=== PATIENT | female | born 1945 | race Caucasian/White ===

== ENCOUNTER 2025-04-25 09:24 | Outpatient (AMB) | payer MEDICARE, BC, SELFPAY ==
--- OUTSIDE RECORDS SUMMARY | 2025-04-24 09:30 | XMS_ITS | Encounter Summary ---
Author Organization [facility] Address [address] [place] [address] Care Team Providers Care Raw Products Director Name Role Phone Kimi Patel MD Primary Care Provider [phone] Reason for Visit * Reason Comments Hypertension Chronic Kidney Disease Encounter Details Date Type Department Care Team (Late st Contact Info) Description 04/24/2025 9:30 AM EDT Office Visit Adult Medicine [address] [phone] Kimi Patel MD [address] [place] [address] Essential hypertension, benign (Primary Dx); Hypercholesterolemia ; Chronic diastolic heart failure (CMS/HCC V24, CMS/HCC V28); Asthma-COPD overlap syndrome (CMS/HCC V24, CMS/HCC V28); Stage 3b chronic kidney disease (CMS/HCC V24, CMS/HCC V28) Social History Tobacco Use Types Packs/Day Years Used Date Smoking Tobacco: Former Cigarettes 1 17 0 07/05/1958 - 07/05/1975 Smokeless Tobacco: Former Tobacco Cessation:Counseling Given: Not Answered Alcohol Use Standard Drinks/Week Comments Yes 0 (1 standard drink = 0.6 oz pur e alcohol) Housing Instability Answer Date Recorde d Are you worried that in the next 2 months you may not have stable housing? No 02/12/2025 Access to Healthcare Answer Date Record ed Within the last 3 months, ho w many times did you visit the emergency department for your medical care? 1 02/12/2025 Transportation Answer Date Recorded Has the lack of transportati on kept you from meetings, work, or from getting things needed for daily living? No Has the lack of transportati on kept you from medical appointments or from getting medications? No 02/12/2025 Social Isolation Answer Date Recorded How often do you feel lonely or isolated from th ose around you? Never 02/12/2025 Food Risk Answer Date Recorded Within the past 12 months we worried whether our food would run out before we got money to buy more. Never true 02/12/2025 Within the past 12 months th e food we bought just didn't last and we didn't have money to get more. Never true 02/12/2025 Living Situation Answer Date Recorded What is your living situation? Unrecognized valu e 02/12/2025 Interpersonal Safety Answer Date Record ed Physical Abuse Unrecognized value 01/01/2025 Verbal Abuse Unrecognized value 01/01/2025 Comments No Sex and Gender Information Value Date Recorded Sex Assigned at Not on file Legal Sex Female 7:41 AM EST Gender Identity Not on file Sexual Orientation Not on file documented as of this encounter Last Filed Vital Signs Vital Sign Reading Time Taken Comments Blood Pressure 122/56 04/24/2025 9:15 AM EDT Pulse 58 04/24/2025 9:15 AM EDT Temperature 36.1 C (97 F) 04/24/2025 9:15 AM EDT Respiratory Rate 16 04/24/2025 9:15 AM EDT Oxygen Saturation 96% 04/24/2025 9:15 AM EDT Inhaled Oxygen Concentration - - Weight 74.8 kg (164 lb 14.4 oz) 04/24/2025 9:15 AM EDT Height 162.6 cm (5' 4 ) 04/24/2025 9:15 AM EDT Body Mass Index 28.31 04/24/2025 9:15 AM EDT documented in this encounter Ordered Prescriptions Prescription Sig Dispense Quantity Refills Last Filled Start Date End Date allopurinoL (ZYLOPRIM) 100 mg tablet Take 1 tablet (100 mg total) by mouth 1 (one) time each day. 90 tablet 1 04/24/2025 atenoloL (TENORMIN) 25 mg tablet Take 1 tablet (25 mg total) by mouth at bedtime. 90 tablet 1 04/24/2025 cetirizine (ZyrTEC) 10 mg tabletIndications: Asthma-COPD overlap syndrome (CMS/HCC V24, CMS/HCC V28) Take 1 tablet (10 mg total) by mouth 1 (one) time each day. 90 tablet 1 04/24/2025 levothyroxine (SYNTHROID, LEVOTHROID) 75 mcg tablet Take 1 tablet (75 mcg total) by mouth 1 (one) time each day. 90 tablet 1 04/24/2025 omeprazole (PriLOSEC) [address] capsule Take 1 capsule (20 mg total) by mouth 1 (one) time each day before breakfast. 90 capsule 1 04/24/2025 simvastatin (ZOCOR) 40 mg tablet Take 1 tablet (40 mg total) by mouth at bedtime. 90 tablet 1 04/24/2025 documented in this encounter Progress Notes * Kimi Patel MD - 04/24/2025 9:30 AM EDT Chief Complaint: Chief Complaint Patient presents with Hypertension Chronic Kidney Disease IDENTIFIER: Ilda Galvan is a 79 y.o. old female HPI She comes for evaluation with chronic kidney disease, congestive heart failure, asthma-COPD, hypothyroidism, elevated cholesterol, hypertension. She is following ongoing with cardiology and with pulmonary, breathing has been stable using the albuterol and Breo Ellipta inhalers, she continues with thyroid replacement as well as simvastatin and blood pressure is controlled with atenolol, amlodipine, allopurinol for the gout and omeprazole for reflux. She is continuing with daily potassium, Lasix as well as a low-sodium diet. She has been feeling generally at her baseline, not having chest pain or shortness of breath. She has previously had breast cancer and is up-to-date with monitoring. Renal studies are stable with creatinine 1.96. She has not yet had the updated COVID-vaccine. ROS: General: No malaise, significant weight loss or fever Respiratory: No cough, wheezing or shortness of breath except as noted Cardiovascular: No chest pain, palpitations, no orthopnea Past Medical History: Patient Active Problem List Diagnosis Date Noted Cognitive impairment 12/27/2024 History of breast cancer 09/11/2024 Pulmonary nodules 11/13/2022 RLS (restless legs syndrome) 11/13/2022 COVID-19 09/16/2022 Mild obstructive sleep apnea 06/15/2021 Ascending aorta dilation [place] [place] 05/13/2020 Lichen sclerosus 03/08/2020 Chronic diastolic heart failure ([facility] [place], [facility] V28) 11/07/2018 Overweight (BMI 25.0-29.9) 10/12/2018 Primary osteoarthritis of both hands 08/06/2017 Asthma-COPD overlap syndrome ([facility] [place], [facility] V28) 05/02/2015 Plantar fasciitis of right foot 10/11/2014 Post herpetic neuralgia 02/27/2011 Stage 3b chronic kidney disease ([facility] [place]24, [facility] V28) 03/06/2010 Hypercholesterolemia 04/04/2008 Environmental and seasonal allergies 01/15/2006 Esophageal reflux 01/15/2006 Essential hypertension, benign 01/15/2006 Hypothyroid 01/15/2006 Gout, unspecified 01/07/2006 Surgical History: Surgical History[1] Family History: Family History[2] Social History: Social History Tobacco Use Smoking status: Former Current packs/day: 0.00 Average packs/day: 1 pack/day for 17.0 years (17.0 ttl pk-yrs) Types: Cigarettes Start date: 07/05/1958 Quit date: 07/05/1975 Years since quittin.8 Smokeless tobacco: Former Substance Use Topics Alcohol use: Yes Allergies: Morphine Medications: Medications Taking[3] Medication Discontinued/Reordered: Medications Discontinued During This Encounter Medication Reason levothyroxine (SYNTHROID, LEVOTHROID) 75 mcg tablet Reorder simvastatin (ZOCOR) 40 mg tablet Reorder omeprazole (PriLOSEC) [address] capsule Reorder atenoloL (TENORMIN) 25 mg tablet Reorder cetirizine (ZyrTEC) 10 mg tablet Reorder allopurinoL (ZYLOPRIM) 100 mg tablet Reorder Vitals: Blood pressure 122/56, pulse 58, temperature 36.1 ??C (97 ??F), temperature source Temporal, resp. rate 16, height 1.626 m (64 ), weight 74.8 kg (164 lb 14.4 oz), SpO2 96%. Body mass index is 28.31 kg/m??.Plan is deferred because the patient is aged 65 or older and a weight gain/reduction plan would complicate other health conditions Physical Exam: General: patient is in no acute distress. Neck supple without adenopathy, no thyromegaly. Lungs clear with auscultation. Heart: regular S1S2 without murmur, rub or gallop. Extremities without cyanosis, clubbing or edema. Labs: Lab Results Component Value Date GLUCOSE 100 02/02/2025 CALCIUM 9.9 02/02/2025 NA 140 02/02/2025 K 4.0 02/02/2025 CO2 33 (H) 02/02/2025 CL 104 02/02/2025 BUN 32 (H) 02/02/2025 CREATININE 1.96 (H) 02/02/2025 Lab Results Component Value Date CHOL 184 07/03/2024 TRIG 140 07/03/2024 HDL 64 07/03/2024 LDLCALC 92 07/03/2024 VLDL 28 07/03/2024 NONHDLC 120 07/03/2024 CHOLHDL 2.9 07/03/2024 Impression: 1. Essential hypertension, benign 2. Hypercholesterolemia 3. Chronic diastolic heart failure (CMS/HCC V24, CMS/HCC V28) 4. Asthma-COPD overlap syndrome (CMS/HCC V24, CMS/HCC V28) 5. Stage 3b chronic kidney disease (CMS/HCC V24, CMS/HCC V28) Assessment and Plan: She will continue with thyroid replacement, not having any symptoms suggestive of cardiac decompensation, asthma-COPD have been stable on her inhalers. Her blood pressure remains controlled on the atenolol, amlodipine and she will continue with simvastatin for her cholesterol. Renal studies have been stable, she is updated with flu vaccine and will pursue the COVID-vaccine through the pharmacy. She remains with thyroid replacement, low-cholesterol and low-sodium diet. She will return in 6 months, sooner if needed Myself and my colleagues have maintained a long-term, longitudinal relationship with this patient, overseeing care of chronic conditions including hypertension, elevated cholesterol, chronic kidney disease. This care relationship has significantly influenced my decision making and treatment plans during today's encounter. [1] Past Surgical History: Procedure Laterality Date COLONOSCOPY 09/2005 COLONOSCOPY 09/17 Colon polyps x 2, diverticulosis MASTECTOMY 1988 right [2] Family History Problem Relation Name Age of Onset Breast cancer Maternal Grandmother 60.00 Bilateral, second breast removed at 65 yrs for breast cancer. Breast cancer Aunt maternal 70.00 maternal Breast cancer Sister 75 Other (Other: ETOH abuse) Mother Other (Other: CAD) Father COPD Colon cancer Neg Hx Ovarian cancer Neg Hx Uterine cancer Neg Hx Pancreatic cancer Neg Hx Prostate cancer Neg Hx [3] Outpatient Medications Marked as Taking for the 04/24/25 encounter (Office Visit) with Kimi Patel MD Medication Sig Dispense Refill albuterol HFA (PROAIR HFA ; PROVENTIL HFA ; VENTOLIN HFA) 90 mcg/actuation inhaler Inhale 2 Puffs into the lungs every 4 hours as needed for Cough or Wheezing. allopurinoL (ZYLOPRIM) 100 mg tablet Take 1 tablet (100 mg total) by mouth 1 (one) time each day. 90 tablet 1 amLODIPine (NORVASC) 10 mg tablet TAKE 1 TABLET BY MOUTH EVERYDAY AT BEDTIME 90 tablet 1 atenoloL (TENORMIN) 25 mg tablet Take 1 tablet (25 mg total) by mouth at bedtime. 90 tablet 1 azelastine (ASTELIN) 137 mcg (0.1 %) nasal spray SPRAY 1 SPRAY IN EACH NOSTRIL DIRECTED TWICE A DAY 90 mL 3 betamethasone, augmented, (DIPROLENE) 0.05 % ointment APPLY TOPICALLY TO AFFECTED AREA ON WEDNESDAY, WEDNESDAY, WEDNESDAY Breo Ellipta 200-25 mcg/dose inhaler INHALE 1 PUFF BY MOUTH EVERY DAY 60 each 4 cetirizine (ZyrTEC) 10 mg tablet Take 1 tablet (10 mg total) by mouth 1 (one) time each day. 90 tablet 1 cholecalciferol (VITAMIN D-3) 125 mcg (5,000 unit) capsule Take by mouth. cycloSPORINE (Restasis MultiDose) 0.05 % drops PLACE 1 DROP IN BOTH EYES TWICE DAILY fluticasone propionate (FLONASE) 50 mcg/actuation nasal spray SPRAY 2 SPRAYS INTO EACH NOSTRIL EVERY DAY 48 mL 1 furosemide (LASIX) 40 mg tablet Take 1 tablet (40 mg total) by mouth 1 (one) time each day. 90 each1 levothyroxine (SYNTHROID, LEVOTHROID) 75 mcg tablet Take 1 tablet (75 mcg total) by mouth 1 (one) time each day. 90 tablet 1 omeprazole (PriLOSEC) [address] capsule Take 1 capsule (20 mg total) by mouth 1 (one) time each day before breakfast. 90 capsule 1 potassium chloride (KLOR-CON M20) 20 mEq CR tablet Take 1 tablet (20 mEq total) by mouth 1 (one) time each day. Tablet may be swallowed whole (do not crush/chew/suck on) OR broken in half and each half swallowed separately OR dissolved (whole tablet) in ~4 ounces of water (allow ~2 minutes to dissolve, stir well and administer immediately). 90 each 1 simvastatin (ZOCOR) 40 mg tablet Take 1 tablet (40 mg total) by mouth at bedtime. 90 tablet 1 [DISCONTINUED] allopurinoL (ZYLOPRIM) 100 mg tablet TAKE 1 TABLET BY MOUTH EVERY DAY 90 tablet 1 [DISCONTINUED] atenoloL (TENORMIN) 25 mg tablet Take 1 tablet (25 mg total) by mouth at bedtime. 90tablet 1 [DISCONTINUED] cetirizine (ZyrTEC) 10 mg tablet TAKE 1 TABLET BY MOUTH EVERY DAY 90 tablet 1 [DISCONTINUED] levothyroxine (SYNTHROID, LEVOTHROID) 75 mcg tablet TAKE 1 TABLET BY MOUTH EVERY DAY90 tablet 1 [DISCONTINUED] omeprazole (PriLOSEC) [address] capsule Take 1 capsule (20 mg total) by mouth 1 (one)time each day before breakfast. 90 capsule 1 [DISCONTINUED] simvastatin (ZOCOR) 40 mg tablet Take 1 tablet (40 mg total) by mouth at bedtime. 90tablet 1 documented in this encounter Plan of Treatment Upcoming Encounters Date Type Department Care Team (Late st Contact Info) Description 05/21/2025 1:10 PM EST Office Visit [facility] [address] [facility] [address] [place] [phone] Shyanne Montano, HENNA [address] [place] [address] [place] [phone] 06/27/2025 10:30 AM EST Ancillary Procedure Pulmonology - [address] [phone] 06/27/2025 11:25 AM EST Office Visit Pulmonology - [address] [phone] Brea Gregorio, HENNA [address] [place] [phone] 10/23/2025 9:30 AM EDT Office Visit Adult Medicine [facility] [address] [place] [address] Kisha Gardner PA [address] [place] [address] documented as of this encounter Goals Goal Patient Goal Type Associated Problems Recent Progress Patient-Stated? Author Learn early signs and symptoms General No Arlin Alcantara, RN Note: Educate pt on s/s to watch for and importance of daily weights 02/12/25 discussed heart healthy diet. She limits salt and we reviewed sources of hidden sodium in foods 03/14/25 pt went out to eat with friends and still monitored sodium. We reviewed s/s and ways to reduce edema documented as of this encounter Visit Diagnoses Diagnosis Essential hypertension, benign- Primary Hypercholesterolemia Pure hypercholesterolemia Chronic diastolic heart failure (CMS/HCC V24, CMS/HCC V28) Chronic diastolic heart failure Asthma-COPD overlap syndrome (CMS/HCC V24, CMS/HCC V28) Stage 3b chronic kidney disease (CMS/HCC V24, CMS/HCC V28) documented in this encounter Discontinued Medications Medication Sig Discontinue Reason Start Date End Da te levothyroxine (SYNTHROID, LEVOTHROID) 75 mcg tablet TAKE 1 TABLET BY MOUTH EVERY DAY Reorder 10/26/2024 04/24/2025 simvastatin (ZOCOR) 40 mg tablet Take 1 tablet (40 mg total) by mouth at bedtime. Reorder 11/01/2024 04/24/2025 omeprazole (PriLOSEC) [address] capsule Take 1 capsule (20 mg total) by mouth 1 (one) time each day before breakfast. Reorder 11/01/2024 04/24/2025 atenoloL (TENORMIN) 25 mg tablet Take 1 tablet (25 mg total) by mouth at bedtime. Reorder 11/01/2024 04/24/2025 cetirizine (ZyrTEC) 10 mg tabletIndications:Postna [place] drip TAKE 1 TABLET BY MOUTH EVERY DAY Reorder 11/15/2024 04/24/2025 allopurinoL (ZYLOPRIM) 100 mg tablet TAKE 1 TABLET BY MOUTH EVERY DAY Reorder 11/15/2024 04/24/2025 documented as of this encounter Orders Immunization/Injection Count Last Ordered Date First Ordered Date INFLUENZA TRIVALENT, 0.5ML ( FLUAD) 65YO AND OLDER 1 04/24/2025 documented in this encounter Additional Health Concerns Assessment Noted Time PHQ-9 Depression Total Score: 0 04/23/20 25 3:04 PM EDT documented as of this encounter Care Teams Raw Products Director Relationship Specialty Start Date End Date Kimi Patel MD [address] [place] [address] PCP - General Internal Medicine 07/04/15 documented as of this encounter
--- NOTE | 2025-04-25 09:25 | AM.OFFWIN_ITS ---
Intake Vital Signs 04/25/25 09:28 Height 5 ft 4 in Weight 163 lb BMI 28.0 BP 140/70 H Blood Pressure Location Rt brachial Position Sitting Pulse 63 Pulse Source Pulse Oximeter Temp 97.8 F Temp Source Oral Pulse Oximetry (%) 95 Oxygen Delivery Method Room Air Intake Visit Reasons: EP cut on right arm Intake Note: The patient fell accidentally yesterday. There is some sign of skin cut and redness on her right elbow and under the elbow. Allergies No Known Allergies Allergy (Verified 04/25/25 09:39) Do you need a note to return to daycare/school/sports/work: No HPI HPI Comments History of Present Illness Details Patient was informed and verbally consented to the use of an ambient scribe for clinic note documentation during the visit. History of Present Illness The patient is an 79-year-old female presenting with recent fall. Fall - The patient reports falling yesterday upon entering her house as a result of losing her balance. - During the fall, she hit her head brie fly but reports her shoulder took most of the impact and sustained no persistent symptoms such as headaches, dizziness, or loss of consciousness. - The patient denies being on blood thin ners, having recent vision changes, or experiencing weakness in her limbs. - She sustained a skin laceration along the right forearm. Reports cleaning out the wound after the injury - Denies any other injuries/trauma - Has noticed some clear drainage from t he wound but not longer any active bleeding - The patient removed a piece of hanging skin post-injury. - She reports application of a Band-Aid and cessation of active bleeding. Review of Systems Constitutional: Negative for fevers, chills, HENT: Negative for congestion, rhinorrhea, sore throat, ear pain, ear discharge, hearing loss Eyes: Negative for visual disturbance Skin: Reports right forearm wound Neurological: Negative for dizziness, headaches, light headedness, vision changes, numbness, limb weakness Physical Exam General Appearance: Normal appearance, well developed. No acute distress Head: Normocephalic, atraumatic Pulmonary: No respiratory distress. Speaking in full sentences Musculoskeletal: Moving all extremities spontaneously and against gravity Skin: Roughly 2 cm skin avulsion/abrasion present along the right forearm, no longer actively bleeding. Wound appears clean without foreign body or debris. Distal neurovascular status intact including pulse, capillary refill, color, temperature, sensation, and ROM. Mental Status: Alert and Oriented x 3 Psychiatric: Normal mood. Normal affect. Physical Exam Vital Signs: Last Vital Signs Temp 97.8 F 04/25/25 09:28 Pulse 63 04/25/25 09:28 BP 140/70 H 04/25/25 09:28 Pulse Ox 95 04/25/25 09:28 Oxygen Delivery Method Room Air 04/25/25 09:28 BMI result Body Mass Index 28.0 Assessment & Plan Assessment & Plan (1) Avulsion of skin of right forearm: Code(s): S51.801A - Unspecified open wound of right forearm, initial encounter Qualifiers: Encounter type: initial encounter Qualified Code(s): S51.801A - Unspecified open wound of right forearm, initial encounter Plan: - Wound is a skin avulsion and no longer actively bleeding - I recommend applying topical antibiotic ointment to prevent infection and using nonstick gauze to avoid reopening the wound during dressing changes. - Wound cleaned and dressed in office. - Dressing changes are advised every 24 hours, washing the wound with soap and water, then reapplying ointment and gauze - Last tdap UTD - 08/23/24 - F/U if any signs of infection such as redness, swelling, purulent drainage occur (2) Fall: Code(s): W19.XXXA - Unspecified fall, initial encounter Qualifiers: Encounter type: initial encounter Qualified Code(s): W19.XXXA - Unspecified fall, initial encounter Plan: Advised to monitor for any headaches, dizziness, changes in vision, or focal weakness. Recommended to seek prompt medical attention if these symptoms occur Coding Level of Care Code New Pt Level 3 (30914) Diagnoses Avulsion of skin of right forearm, initial encounter S51.801A Encounter type: initial encounter Fall, initial encounter W19.XXXA Encounter type: initial encounter
[2025-04-25 09:28] VITALS: BP 140/70; PULSE 63; TEMP 36.6; O2SAT 95; BMI 28.0
--- OUTSIDE RECORDS SUMMARY | 2025-04-25 10:40 | XMS_ITS ---
Author Organization [facility] [address] [place] [address] [place] [phone] Phone Care Team Providers Care School Photographs Detailer Name Role Phone Kimi Patel MD Primary Care Provider Chronic Care Management Status:Ongoing (Active) Start date:01/04/2025 Enrollment date:01/10/2025 Enrollment reason:Referred by Care Team Related social drivers of health:Housing Instability, Food Access & Nutrition, Access to Healthcare, TH Health Literacy, Financial Risk, Transportation, Social Isolation, Food Risk Case Team Name Relationship Phone Arlin Alcantara RN(Responsible Staff) Care Ghassan [email or web address] [facility] Services Coordination
--- OUTSIDE RECORDS SUMMARY | 2025-04-25 10:40 | XMS_ITS | Clinical Summary ---
Author Organization [facility], Address [address] [place] [address] [place] [address] Phone Care Team Providers Care Wire Drawing Die Maker Name Role Phone Kimi Patel MD Primary Care Provider [phone] Allergies Active Allergy Reactions Criticality Noted Date Comments Morphine Nausea And Vomiting 08/06/2017 Medications simvastatin (ZOCOR) 20 MG tablet TAKE 1 TABLET BY MOUTH EVERYDAY AT BEDTIME 0 Active omeprazole (PriLOSEC) [address] capsule Take 20 mg by mouth 0 Active levothyroxine (SYNTHROID, LEVOTHROID) 100 MCG tablet TAKE 1 TABLET BY MOUTH EVERY DAY 0 Active gabapentin (NEURONTIN) 300 MG capsule TAKE 1 CAPSULE BY MOUTH TWICE A DAY 0 Active furosemide (LASIX) 40 MG tablet Take 40 mg by mouth 0 Active fluticasone (FLONASE) 50 MCG/ACT nasal spray TAKE 2 SPRAYS EACH NOSTRIL DAILY 0 Active cycloSPORINE (RESTASIS) 0.05 % ophthalmic emulsion Administer 1 drop into affected eye(s) Active budesonide-form oterol (Symbicort) 160-4.5 MCG/ACT inhaler TAKE 2 PUFFS BY MOUTH TWICE A DAY 0 Active atenolol (TENORMIN) 25 MG tablet Take 25 mg by mouth 0 Active triamcinolone (Nasacort Allergy 24HR) 55 MCG/ACT nasal inhaler Administer 55 mcg into affected nostril(s) 1 Active calcium carbonate-vitam in D 600-200 MG-UNIT per tablet Take by mouth Active albuterol HFA (ProAir HFA) 108 (90 Base) MCG/ACT inhaler Inhale 2 puffs 8 Active albuterol (2.5 MG/3ML) 0.083% nebulizer solution Inhale 2.5 mg 0 Active allopurinol (ZYLOPRIM) 300 MG tablet Take 1 tablet (300 mg total) by mouth 1 (one) time each day 90 tablet 3 1 Active cetirizine (ZyrTEC) 10 MG tablet Take 1 tablet by mouth 1 (one) time each day 2 Active Azelastine HCl 0.15 % solution 2 Active omeprazole (PriLOSEC) [address] capsule Take 1 tablet by mouth 1 (one) time each day 2 Active levothyroxine (SYNTHROID, LEVOTHROID) 75 MCG tablet Take 75 mcg by mouth 1 (one) time each day 3 Active nystatin (MYCOSTATIN) 153973 UNIT/ML suspension PLEASE SEE ATTACHED FOR DETAILED DIRECTIONS 3 Active simvastatin (ZOCOR) 40 MG tablet Take 40 mg by mouth 1 (one) time each day in the evening 3 Active Diclofenac Sodium 1 % cream Apply 1 Dose topically in the morning and 1 Dose in the evening. 30 g 3 4 Active olmesartan (BENICAR) 5 MG tablet TAKE 1 TABLET BY MOUTH EVERY DAY 90 tablet 3 5 Active Active Problems Problem Noted Date Diagnosed Date Ascending aorta dilatation 05/13/2020 Overview (12/10/2020): 05/2020 transthoracic echo 3.6 cm Asthma 05/02/2015 Stage 3a chronic kidney disease 03/06/2010 Hypercholesterolemia 04/04/2008 Hypertension 01/15/2006 Hypothyroidism 01/15/2006 Gout 01/07/2006 Encounters Date Type Department Care Team Description 03/28/2025 10:00 AM EDT Office Visit [facility], [address] [place] [address] Chris Morton MD Stage 3a chronic kidney disease (HCC) (Primary Dx) from Last 3 Months Immunizations Immunization Administration Dates Next Due H1N1 Inj Preservative Free 07/10/2009 Influenza Split High Dose Pr eservative Free IM 02/21/2020,04/13/2019,04/20/2018 Influenza TIV (IM) 06/18/2016, 5,06/14/2014,04/17,04/26/2012,03/24/2011,07/10/2009 ,04/04/2008,07/07/2007,05/20/2006 Influenza, MDCK, Quadrivalen t, with preservative 06/16/2017 Pfizer SARS-COV-2 08/30/2020,08/09/2020 Pneumococcal Conjugate 13-Valent 10/11/2014 Pneumococcal Polysaccharide 09/05/2010 Shingrix 07/27/2019 Td 10/15/2017 Tdap 07/27/2007 Social History Tobacco Use Types Packs/Day Years Used Date Smoking Tobacco: Never Smokeless Tobacco: Never Comments Unknown Sex and Gender Information Value Date Recorded Sex Assigned at Female 01/15/2022 10:51 AM EDT Legal Sex Female 2:24 PM EST Gender Identity Female 01/15/2022 10:51 AM EDT Sexual Orientation Straight 01/15/2022 10 :51 AM EDT Last Filed Vital Signs Vital Sign Reading Time Taken Comments Blood Pressure 145/82 01/21/2022 9:18 AM EDT Pulse - - Temperature - - Respiratory Rate - - Oxygen Saturation - - Inhaled Oxygen Concentration - - Weight - - Height - - Body Mass Index - - Plan of Treatment Upcoming Encounters Date Type Department Care Team (Late st Contact Info) Description 06/26/2025 11:20 AM EST Office Visit [facility], [address] [place] [address] Chris Morton MD [address] [place] [address] [place] [phone] Health Maintenance Due Date Last Done Comments Pneumococcal Vaccine: 50+ Years Completed 10/11/2014, 09/05/2010 Pneumococcal Vaccine: Peds (0 to 5 Years) and At-Risk Patients (6 to 49 Years) Discontinued 10/11/2014, 09/05/2010 Influenza Vaccine Completed 02/16/2025, , 04/20/2023, Additional history exists Hepatitis B Vaccine Aged Out No longe r eligible based on patient's age to complete this topic Insurance Medicare [facility] Care Teams Wire Drawing Die Maker Relationship Specialty Start Date End Date Kimi Patel MD PCP - General Internal Medicine 03/25/22
--- OUTSIDE RECORDS SUMMARY | 2025-04-25 10:40 | XMS_ITS | Encounter Summary ---
Author Organization [facility] Address [address] [place] [address] Phone Care Team Providers Care Dog Catcher Name Role Phone Kimi Patel MD Primary Care Provider [phone] Reason for Visit * Reason Comments Med Refill Encounter Details Date Type Department Care Team (Late st Contact Info) Description 10/04/2024 Refill [facility] [address] [place] [phone] Chris Morton MD [address] [place] [address] Social History Tobacco Use Types Packs/Day Years Used Date Smoking Tobacco: Never Smokeless Tobacco: Never Comments Unknown Sex and Gender Information Value Date Recorded Sex Assigned at Female 01/15/2022 10:51 AM EDT Legal Sex Female 2:24 PM EST Gender Identity Female 01/15/2022 10:51 AM EDT Sexual Orientation Straight 01/15/2022 10 :51 AM EDT documented as of this encounter Plan of Treatment Upcoming Encounters Date Type Department Care Team (Late st Contact Info) Description 06/26/2025 11:20 AM EST Office [facility] [address] [place] [phone] Chris Morton MD [address] [place] [phone] documented as of this encounter Visit Diagnoses Not on filedocumented in this encounter Care Teams Dog Catcher Relationship Specialty Start Date End Date Kimi Patel MD PCP - General Internal Medicine 03/25/22 documented as of this encounter
--- OUTSIDE RECORDS SUMMARY | 2025-04-25 10:41 | XMS_ITS | Clinical Summary ---
Author Organization [facility] [address] [facility] Address [address] [place] [phone] Phone Care Team Providers Care Financial Reserve Clerk Name Role Phone Kimi Patel MD Primary Care Provider [phone] Allergies Active Allergy Reactions Criticality Noted Date Comments Morphine Nausea And Vomiting High 08/06/2017 Medications albuterol HFA (PROAIR HFA ; PROVENTIL HFA ; VENTOLIN HFA) 90 mcg/actuation inhaler Inhale 2 Puffs into the lungs every 4 hours as needed for Cough or Wheezing. 4 Active betamethasone, augmented, (DIPROLENE) 0.05 % ointment APPLY TOPICALLY TO AFFECTED AREA ON WEDNESDAY, WEDNESDAY, Wednesday 4 Active cholecalciferol (VITAMIN D-3) 125 mcg (5,000 unit) capsule Take by mouth. A ctive cycloSPORINE (Restasis MultiDose) 0.05 % drops PLACE 1 DROP IN BOTH EYES TWICE DAILY 4 Active azelastine (ASTELIN) 137 mcg (0.1 %) nasal sprayIndication s:Postnasal drip,Other allergic rhinitis SPRAY 1 SPRAY IN EACH NOSTRIL DIRECTED TWICE A DAY 90 mL 3 4 Active fluticasone propionate (FLONASE) 50 mcg/actuation nasal sprayIndication s:Postnasal drip,Other allergic rhinitis SPRAY 2 SPRAYS INTO EACH NOSTRIL EVERY DAY 48 mL 1 5 Active furosemide (LASIX) 40 mg tablet Take 1 tablet (40 mg total) by mouth 1 (one) time each day. 90 each 1 5 Active potassium chloride (KLOR-CON M20) 20 mEq CR tablet Take 1 tablet (20 mEq total) by mouth 1 (one) time each day. Tablet may be swallowed whole (do not crush/chew/suc k on) OR broken in half and each half swallowed separately OR dissolved (whole tablet) in ~4 ounces of water (allow ~2 minutes to dissolve, stir well and administer immediately). 90 each 1 5 Active Breo Ellipta 200-25 mcg/dose inhalerIndicati ons:Moderate persistent asthma, uncomplicated,C hronic obstructive pulmonary disease, unspecified (CMS/[facility] V24, CMS/[facility] V28) INHALE 1 PUFF BY MOUTH EVERY DAY 60 each 4 5 Active amLODIPine (NORVASC) 10 mg tablet TAKE 1 TABLET BY MOUTH EVERYDAY AT BEDTIME 90 tablet 1 5 Active simvastatin (ZOCOR) 40 mg tablet Take 1 tablet (40 mg total) by mouth at bedtime. 90 tablet 1 5 Active omeprazole (PriLOSEC) [address] capsule Take 1 capsule (20 mg total) by mouth 1 (one) time each day before breakfast. 90 capsule 1 5 Active levothyroxine (SYNTHROID, LEVOTHROID) 75 mcg tablet Take 1 tablet (75 mcg total) by mouth 1 (one) time each day. 90 tablet 1 5 Active cetirizine (ZyrTEC) 10 mg tabletIndicatio ns:Asthma-COPD overlap syndrome (CMS/[facility] V24, CMS/[facility] V28) Take 1 tablet (10 mg total) by mouth 1 (one) time each day. 90 tablet 1 5 Active atenoloL (TENORMIN) 25 mg tablet Take 1 tablet (25 mg total) by mouth at bedtime. 90 tablet 1 5 Active allopurinoL (ZYLOPRIM) 100 mg tablet Take 1 tablet (100 mg total) by mouth 1 (one) time each day. 90 tablet 1 5 Active levothyroxine (SYNTHROID, LEVOTHROID) 75 mcg tablet TAKE 1 TABLET BY MOUTH EVERY DAY 90 tablet 1 5 04/24/20 25 Discontin ued(Reord er) simvastatin (ZOCOR) 40 mg tablet Take 1 tablet (40 mg total) by mouth at bedtime. 90 tablet 1 5 04/24/20 25 Discontin ued(Reord er) omeprazole (PriLOSEC) [address] capsule Take 1 capsule (20 mg total) by mouth 1 (one) time each day before breakfast. 90 capsule 1 5 04/24/20 25 Discontin ued(Reord er) atenoloL (TENORMIN) 25 mg tablet Take 1 tablet (25 mg total) by mouth at bedtime. 90 tablet 1 5 04/24/20 25 Discontin ued(Reord er) cetirizine (ZyrTEC) 10 mg tabletIndicatio ns:Postnasal drip TAKE 1 TABLET BY MOUTH EVERY DAY 90 tablet 1 5 04/24/20 25 Discontin ued(Reord er) allopurinoL (ZYLOPRIM) 100 mg tablet TAKE 1 TABLET BY MOUTH EVERY DAY 90 tablet 1 5 04/24/20 25 Discontin ued(Reord er) Active Problems Problem Noted Date Diagnosed Date Cognitive impairment 12/27/2024 History of breast cancer 09/11/2024 Overview (09/11/2024): right Pulmonary nodules 11/13/2022 RLS (restless legs syndrome) 11/13/2022 COVID-19 09/16/2022 Mild obstructive sleep apnea 06/15/2021 Overview (05/08/2024): 04/28/2021 HSAT Patient diagnosed with mild sleep apnea with AHI of 9. Her oxygen avrage was 91% and tari was 74%. Her oxygen was <88% for 12minutes. Ascending aorta dilation (CMS/HCC V24) 0 Overview (05/08/2024): 05/2020 transthoracic echo 3.6 cm Lichen sclerosus 03/08/2020 Overview (09/11/2024): Assessment & Plan (06/10/2024 8:30 PM EST): Reviewed findings with patient. I reviewed the importance of regular maintenance topical steroid use to prevent symptoms, further scarring, and squamous cell cancer of the vulva. I also explained the importance of regular follow up to ensure she has no evidence of precancerous or cancerous changes and that she is not having side effects from her medication. I reviewed areas of application and amount of medication to use. Continue three times per week Diprolene Chronic diastolic heart failure ([facility] V24, CM S/[facility] V28) 11/07/2018 Overview (09/11/2024): Assessment & Plan (02/02/2025 1:10 PM EDT): Aside from some mild lower extremity edema she appears euvolemic on physical exam. She denies shortness of breath, orthopnea and paroxysmal nocturnal dyspnea. She is being more conscientious of sodium in her diet. She has continued on furosemide 40 mg daily despite being advised to discontinue this due to declining kidney function. I will have her update BMP and mag level today before making changes to her current medical therapy. She will go to the lab from here. She is unsure if she is still taking potassium. She will check when she gets home and contact the office for clarification. If kidney function remains significantly reduced from her baseline, I will have to consider discontinuing furosemide. Her next appointment with nephrology is not until the end of March and I have asked her to give their office a call to try to move up the appointment. Assessment & Plan (10/02/2024 4:52 PM EDT): She appears slightly volume overloaded with lower extremity edema. She otherwise has no shortness of breath with her daily activity. We had a discussion about reducing salt intake. Will increase furosemide to 20 mg 4 times a week. Orders: Ambulatory referral to Cardiology ECG 12 lead Overweight (BMI 25.0-29.9) 10/12/2018 Primary osteoarthritis of both hands 08/06/2017 Asthma-COPD overlap syndrome (CMS/HCC V24, CMS/H CC V28) 05/02/2015 Plantar fasciitis of right foot 10/11/2014 Post herpetic neuralgia 02/27/2011 Stage 3b chronic kidney disease (CMS/HCC V24, CM S/HCC V28) 03/06/2010 Hypercholesterolemia 04/04/2008 Overview (09/11/2024): Environmental and seasonal allergies 01/15/2006 Esophageal reflux 01/15/2006 Essential hypertension, benign 01/15/2006 Overview (09/11/2024): Assessment & Plan (02/02/2025 1:05 PM EDT): Blood pressure is well-controlled in the office today at 116/60. Continue current medical therapy with amlodipine and atenolol as prescribed. Continue to hold olmesartan in the setting of reduced kidney function. Assessment & Plan (10/02/2024 4:52 PM EDT): Overall hypertension control is reasonable. Hopefully, blood pressure will improve with diet change. Hypothyroid 01/15/2006 Gout, unspecified 01/07/2006 Resolved Problems Problem Noted Date Diagnosed Date Resolved Date Anasarca 01/01/2025 01/11/2025 Encounters Date Type Department Care Team Description 04/24/2025 9:30 AM EDT Office Visit Adult Medicine [address] [phone] Kimi Patel MD Essential hypertension, benign (Primary Dx); Hypercholesterolemia; Chronic diastolic heart failure (CMS/HCC V24, CMS/HCC V28); Asthma-COPD overlap syndrome (CMS/HCC V24, CMS/HCC V28); Stage 3b chronic kidney disease (CMS/HCC V24, CMS/HCC V28) 03/26/2025 9:20 AM EDT Office Visit Pulmonology - [address] [place] [phone] Brea Gregroio NP Asthma-COPD overlap syndrome (CMS/HCC V24, CMS/HCC V28) (Primary Dx); Pulmonary nodules; Mild obstructive sleep apnea; Overweight (BMI 25.0-29.9) 02/20/2025 Telephone Adult Medicine [address] [phone] Yissel Hayes RN 02/15/2025 Telephone Adult Medicine [address] [phone] Kimi Patel MD 02/02/2025 1:20 PM EDT Lab Draw Station - [address] [facility] [place] [phone] Chronic diastolic heart failure ([facility] V24, CMS/HCC V28) 02/02/2025 12:40 PM EDT Office Visit [facility] - [address] [place] [phone] Shyanne Montano, HENNA Chronic diastolic heart failure (CMS/HCC V24, CMS/HCC V28) (Primary Dx); Essential hypertension, benign from Last 3 Months Immunizations Immunization Administration Dates Next Due H1N1 Inj Preservative Free 07/10/2009 Influenza Quadravalent, 0.5m l (Fluzone High-dose) 65yo and older 08/23/2024,04/20/2023,05/09/2022 Influenza Quadravalent, MDCK , 0.5ml, with preservative (Flucelvax) 6mo and older 06/16/2017 Influenza trivalent, 0.5mL ( Fluad) 65yo and older 04/24/2025,05/09/2022,06/12/2021,02/20,04/13/2019,04/20/2018 Influenza trivalent, 0.5mL ( Fluzone High-dose) 65yo and older 02/16/2025,08/23/2024,06/12/2021,02/20,04/13/2019,04/20/2018 Influenza trivalent, 0.5mL, preservative free (Fluarix; FluLaval; Fluzone) ages 6mo and older (Afluria) 3 years and older 04/20/2023,06/18/2016,05/02/2015,06/14,04/17/2013,04/26/2012,03/24/2011 ,07/10/2009,04/04/2008,07/07/2007,05/05 Influenza trivalent, with pr eservative (Fluzone; Afluria) 6mo and older 06/18/2016,05/02/2015,06/14/2014,04/17,04/26/2012,03/24/2011,07/10/2009 ,04/04/2008,07/07/2007,05/20/2006 Pneumococcal conjugate 13 va lent (Prevnar 13, PCV13) 2mo and older 10/11/2014 Pneumococcal polysaccharide 23 valent (Pneumovax 23) 2yo and older 09/05/2010 RSV, bivalent, protein subun it RSVpreF, 0.5mL, Preservative Free (ABRYSVO) 50yo and older or 32 through 36 wks of 02/29/2024 Respiratory syncytial virus (RSV), unspecified 02/29/2024 Td Tetanus diptheria (Tdvax) 7yo and older 10/15/2017 Tdap Tetanus diptheria acell ular pertussis (Boostrix; Adacel) 7yo and older 08/23/2024,10/15/2017,07/27/2007 Zoster Live 02/16/2013 Zoster recombinant (Shingrix ) 19yo and older 02/21/2020,07/27/2019 Surgical History Surgery Date Site/Laterality Comments MASTECTOMY 1988 right COLONOSCOPY 09/2005 COLONOSCOPY 09/17 Colon polyps x 2, diverticulosis Medical History Medical History Date Comments Essential hypertension, benign Allergic rhinitis, cause unspecified Esophageal reflux Congestive heart failure, unspecified Post herpetic neuralgia 02/27/2011 Ascending aorta dilation ([facility] V24) 05/13/202005/24 3.6 cm Asthma-COPD overlap syndrome ([facility] V24, [facility]/ CC V28) 05/02/2015 CKD (chronic kidney disease) stage 3, GFR 30-59 ml/min (CMS/HCC V24, [facility]/HCC V28) 03/06/2010 Hypothyroid 01/15/2006 History of breast cancer 09/11/2024 right Family History Medical History Relation Name Comments Breast cancer Aunt maternal maternal Other: CAD Father COPD Breast cancer Maternal Grandmother Bilate ral, second breast removed at 65 yrs for breast cancer. Other: ETOH abuse Mother Breast cancer Sister 75 Colon cancer Neg Hx Ovarian cancer Neg Hx Pancreatic cancer Neg Hx Prostate cancer Neg Hx Uterine cancer Neg Hx Relation Name Status Comments Aunt maternal Father Maternal Grandmother Mother Sister 75 Alive Social History Tobacco Use Types Packs/Day Years [...] on file Sexual Orientation Not on file Obstetrics History Para Term AB IAB SAB Ectopic Multiple Livin g Live Births 1 0 0 Date Outcome GA Total Labor Labor/2nd/3rd Weight Sex Type Anes PTL Zaira A1 A5 Name Clin Last Filed Vital Signs Vital Sign Reading Time Taken Comments Blood Pressure 122/56 04/24/2025 9:15 AM EDT Pulse 58 04/24/2025 9:15 AM EDT Temperature 36.1 C (97 F) 04/24/2025 9:15 AM EDT Respiratory Rate 16 04/24/2025 9:15 AM EDT Oxygen Saturation 96% 04/24/2025 9: 15 AM EDT Inhaled Oxygen Concentration - - Weight 74.8 kg (164 lb 14.4 oz) 04/24/2025 9:15 AM EDT Height 162.6 cm (5' 4 ) 04/24/2025 9:15 AM EDT Body Mass Index 28.31 04/24/2025 9:15 AM EDT Plan of Treatment Upcoming Encounters Date Type Department Care Team (Late st Contact Info) Description 05/21/2025 1:10 PM EST Office Visit [facility] - [facility] [address] [facility] [address] [place] [phone] Shyanne Montano, HENNA [address] [place] [address] [address] [place] [phone] 06/27/2025 10:30 AM EST Ancillary Procedure Pulmonology - [place] [address] [facility] [address] [place] [phone] 06/27/2025 11:25 AM EST Office Visit Pulmonology - [place] [address] [facility] [address] [place] [phone] Brea Gregorio, HENNA [address] [place] [phone] 10/23/2025 9:30 AM EDT Office Visit Adult Medicine [address] [phone] Kisha Gardner PA [address] [place] [phone] Health Maintenance Due Date Last Done Comments COVID-19 Vaccine (3 - Pfizer risk series) 09/27/2020 08/30/2020, 08/09/2020 Medicare Annual Wellness Visit 02/07/2025 02/08/2024 Falls Risk Assessment 01/03/2026 01/03/2025, 024 Hypertension/CHF/CAD Annual BMP Blood Test 02/02/2026 02/02/2025, 01/15/2025, 01/11/2025, Additional history exists Social Influencers of Health Screening 02/12/2026 02/12/2025 Colorectal Cancer Screening: Colonoscopy 03/17/2027 03/17/2022 Cholesterol Screening (Lipid Panel) 07/03/2029 07/03/2024, 02/08/2024, 02/08/2024 DTaP,Tdap,and Td Vaccines (5 - Td or Tdap) 08/23/2034 08/23/2024, 10/15/2017, 10/15/2017, Additional history exists Osteoporosis Screening (Bone Density Screening) 04/03/2036 04/03/2021 Pneumococcal Vaccine: 50+ Years Completed 10/11/2014, 09/05/2010 Zoster Vaccines Completed 02/21/2020, 07/06, 02/16/2013 RSV Immunization Adult Patients Completed 02/29/2024, 02/29/2024 RSV Immunization Patients Under 20 months Aged Out 02/29/2024 No longer eligible based on patient's age to complete this topic Depression Screening Completed 04/23/2025, 02/08/20 24 Influenza Vaccine Completed 04/24/2025, , 08/23/2024, Additional history exists HIB Vaccines Aged Out No longer eligi ble based on patient's age to complete this topic HPV Vaccines Aged Out No longer eligi ble based on patient's age to complete this topic Hepatitis A Vaccines Aged Out No long er eligible based on patient's age to complete this topic Hepatitis B Vaccines Aged Out No long er eligible based on patient's age to complete this topic IPV Vaccines Aged Out No longer eligi ble based on patient's age to complete this topic MMR Vaccines Aged Out No longer eligi ble based on patient's age to complete this topic Meningococcal ACWY Vaccine Aged Out N o longer eligible based on patient's age to complete this topic Meningococcal B Vaccine Aged Out No l onger eligible based on patient's age to complete this topic Varicella Vaccines Aged Out No longer eligible based on patient's age to complete this topic Goals Goal Patient Goal Type Associated Problems Recent Progress Patient-Stated? Author Learn early signs and symptoms General Arlin Garay, RN Note: Educate pt on s/s to watch for and importance of daily weights 02/12/25 discussed heart healthy diet. She limits salt and we reviewed sources of hidden sodium in foods 03/14/25 pt went out to eat with friends and still monitored sodium. We reviewed s/s and ways to reduce edema Procedures Procedure Name Priority Date/Time Associated Diagnosis Comments MAGNESIUM Routine 02/02/2025 1:17 PM EDT Chronic diastolic heart failure ([facility] V24, CMS/[facility] V28) BASIC METABOLIC PANEL Routine 02/02/2025 1:17 PM EDT Chronic diastolic heart failure (CMS/HCC V24, CMS/HCC V28) LIPID PANEL WITH REFLEX TO DIRECT LDL Routine 07/03/2024 8:54 AM EST Mild obstructive sleep apnea Hypothyroidism, unspecified type Hypercholesterolemia Gout, unspecified cause, unspecified chronicity, unspecified site Essential hypertension, benign Gastroesophageal reflux disease, unspecified whether esophagitis present Stage 3b chronic kidney disease (CMS/HCC V24, CMS/HCC V28) Chronic diastolic heart failure (CMS/HCC V24, CMS/HCC V28) FALLS RISK ASSESSMENT Routine 02/23/2024 DEPRESSION SCREENING Routine 02/08/2024 COLONOSCOPY Routine 03/17/2022 DXA BONE DENSITY STUDY 1+ SITS AXIAL SKEL Routine 04/03/2021 4:05 PM EDT Unspecified menopausal and perimenopausal disorder from Last 3 Months or Most Recently Relevant to Health Maintenance Results * Magnesium (02/02/2025 1:17 PM EDT) Magnesium 2.4 1.9 - 2.6 mg/dL LAB CHEMISTRY METHOD 02/02/2025 2:55 PM EDT [facility] Blood Venous blood specimen / Unknown Venipuncture / Unknown 02/02/2025 1:17 PM EDT 02/02/2025 1:44 PM EDT us Shyanne Montano FERRY HAND LAB BLOOD ORDERABLES Final Resu lt [facility] [address] [place] [address], [place] [phone] * (ABNORMAL) Basic metabolic panel (02/02/2025 1:17 PM EDT) Sodium 140 133 - 145 mmol/L LAB CHEMISTRY METHOD 02/02/2025 2:55 PM [facility] Potassium 4.0 3.5 - 5.5 mmol/L LAB CHEMISTRY METHOD 02/02/2025 2:55 PM [facility] Chloride 104 96 - 110 mmol/L LAB CHEMISTRY METHOD 02/02/2025 2:55 PM [facility] CO2 33(H) 21 - 32 mmol/L LAB CHEMISTRY METHOD 02/02/2025 2:55 PM [facility] Anion Gap 3 3 - 11 LAB CHEMISTRY METHOD 02/02/2025 2:55 PM [facility] Glucose 100 70 - 100 mg/dL LAB CHEMISTRY METHOD 02/02/2025 2:55 PM EDT [facility] BUN 32(H) 5 - 25 mg/dL LAB CHEMISTRY METHOD 02/02/2025 2:55 PM [facility] Creatinine 1.96(H) 0.50 - 1.10 mg/dL LAB CHEMISTRY METHOD 02/02/2025 2:55 PM [facility] eGFR 25(L) >=60 mL/min/1. 73m2 LAB CHEMISTRY METHOD 02/02/2025 2:55 PM EDT [facility] Comment:Calculation based on the Chronic Kidney Disease Epidemiology Collaboration (CKD-EPI) equation refit without adjustment for race. BUN/Creatinine Ratio 16.3 LAB CHEMISTRY METHOD 02/02/2025 2:55 PM EDT [facility] Calcium 9.9 8.5 - 10.5 mg/dL LAB CHEMISTRY METHOD 02/02/2025 2:55 PM EDT [facility] Blood Venous blood specimen / Unknown Venipuncture / Unknown 02/02/2025 1:17 PM EDT 02/02/2025 1:44 PM EDT Shyanne Montano NP LAB BLOOD ORDERABLES Final Resu lt [facility] [address] [place] [address], [place] [phone] * Lipid panel with reflex to direct LDL (07/03/2024 8:54 AM EST) Cholesterol 184 0 - 200 mg/dL LAB CHEMISTRY METHOD 07/03/2024 12:55 PM [facility] Triglycerides 140 0 - 150 mg/dL LAB CHEMISTRY METHOD 07/03/2024 12:55 PM [facility] HDL 64 >=40 mg/dL LAB CHEMISTRY METHOD 07/03/2024 12:55 PM [facility] LDL Calculated 92 0 - 100 mg/dL LAB CHEMISTRY METHOD 07/03/2024 12:55 PM [facility] VLDL Cholesterol Jason 28 mg/dL LAB CHEMISTRY METHOD 07/03/2024 12:55 PM EST [facility] Non HDL Chol. (LDL+VLDL) 120 <145 mg/dL LAB CHEMISTRY METHOD 07/03/2024 12:55 PM [facility] Chol/HDL Ratio 2.9 0.0 - 4.4 LAB CHEMISTRY METHOD 07/03/2024 12:55 PM [facility] Blood Venous blood specimen / Unknown Venipuncture / Unknown 07/03/2024 8:54 AM EST 07/03/2024 8:54 AM EST Kisha HANSON LAB BLOOD ORDERABLES Final Re sult [facility] [address] [place] [address], * Falls Risk Assessment (02/23/2024) [facility] Falls Risk [facility] Abstracted Historical Provider MD HEALTH MAINTENANCE Final Result * Depression Screening (02/08/2024) Pathologist [facility] Depression Screening Abstracted [facility] Provider MD HEALTH MAINTENANCE Final Result * Colonoscopy (03/17/2022) Pathologist [facility] Colonoscopy No Interpretation , Abstracted Anatomical Region Laterality Modality Other [facility] Provider MD HEALTH MAINTENANCE Final Result * DXA BONE DENSITY STUDY 1+ SITS AXIAL SKEL (04/03/2021 4:05 PM EDT) Anatomical Region Laterality Modality Bone Densitometr y 01/13/2021 1:17 PM EDT Narrative 04/04/2021 8:58 AM EDT BONE DENSITY Lumbar Spine T-score is +0.6 (SD relative to 20-29 y/o adult) Z-score is +1.1 (SD relative to age matched peers) This is normal by criteria defined by the WHO. Left Hip T-score is -0.4 Z-score is +1.8 This is normal by criteria defined by the WHO. Comparison exam(s): significant increase in bone density of lumbar spine when compared to most recent bone density examination Confidence level is +/-95%. Impression: Based on the World Health Organization criteria, Ilda Galvan should be classified as having normal bone density. The [facility] Department of Internal Medicine recommends using National Osteoporosis Foundation (NOF) guidelines in treatment decisions related to osteoporosis. NOF guidelines suggest considering treatment for postmenopausal women and men aged 50 or older presenting with the following: History of hip or vertebral fracture. T-score less than or equal to -2.5 (DXA) at the femoral neck, total hip, or spine, after appropriate evaluation to exclude secondary causes. Low bone mass (T-score between -1.0 and -2.5 at the femoral neck or spine) AND a 10-year probability of a hip fracture greater than or equal to 3% OR a 10-year probability of a major osteoporosis-related fracture greater than or equal to 20% based on the [place]-adapted WHO algorithm Please note that all treatment decisions require clinical judgment and consideration of individual patient factors, including patient preferences, co-morbidities, previous drug use, risk factors not captured in the FRAX model (e.g., frailty, falls, vitamin D deficiency, increased bone turnover, interval significant decline in bone density) and possible under- or over-estimation of fracture risk by FRAX. Procedure Note Angi Olivia MD - 07/09/2022 BONE DENSITY Lumbar Spine T-score is +0.6 (SD relative to 20-29 y/o adult) Z-score is +1.1 (SD relative to age matched peers) This is normal by criteria defined by the WHO. Left Hip T-score is -0.4 Z-score is +1.8 This is normal by criteria defined by the WHO. Comparison exam(s): significant increase in bone density of lumbar spinewhen compared to most recent bone density examination Confidence level is +/-95%. Impression: Based on the World Health Organization criteria, Ilda Galvan shouldbe classified as having normal bone density. The [facility] Department of Internal Medicine recommendsusing National Osteoporosis Foundation (NOF) guidelines in treatmentdecisions related to osteoporosis. NOF guidelines suggest consideringtreatment for postmenopausal women and men aged 50 or older presentingwith the following: History of hip or vertebral fracture. T-score less than or equal to -2.5 (DXA) at the femoral neck, total hip,or spine, after appropriate evaluation to exclude secondary causes. Low bone mass (T-score between -1.0 and -2.5 at the femoral neck or spine)AND a 10-year probability of a hip fracture greater than or equal to 3% ORa 10-year probability of a major osteoporosis-related fracture greaterthan or equal to 20% based on the [place]-adapted WHO algorithm Please note that all treatment decisions require clinical judgment andconsideration of individual patient factors, including patientpreferences, co-morbidities, previous drug use, risk factors not capturedin the FRAX model (e.g., frailty, falls, vitamin D deficiency, increasedbone turnover, interval significant decline in bone density) and possibleunder- or over-estimation of fracture risk by FRAX. Kimi Patel MD IM DXA PROCEDURES Final Result from Last 3 Months or Most Recently Relevant to Health Maintenance Insurance MEDICARE [facility] Advance Directives * Full Code - Default (Latest Code Status on File) Date Activated Date Inactivated Comments 01/01/2025 8:37 PM 01/03/2025 3:48 PM This is order is used when code status has not been discussed with the patient, or code status is otherwise unknown/unconfirmed To update the patient's code status, place a code status order. Do not modify or discontinue any currently active code status orders. Care Teams Financial Reserve Clerk Relationship Specialty Start Date End Date Kimi Patel MD [address] [place] [id number] PCP - General Internal Medicine 07/04/15
== END 2025-04-25 11:17 | disposition home or self-care (01) ==
PROVIDERS: PCP Internal Medicine; Visit Provider Family Medicine
DX: S51.801A Unspecified open wound of right forearm, initial encounter (principal); W19.XXXA Unspecified fall, initial encounter
CPT/HCPCS: 99203

== ENCOUNTER → 2025-04-25 09:24 | Outpatient (BNVA) | payer MEDICARE, BC, SELFPAY | PROVIDERS: PCP Internal Medicine; Visit Provider Family Medicine | DX: S51.811A Laceration without foreign body of right forearm, initial encounter (principal); W19.XXXA Unspecified fall, initial encounter; Y93.9 Activity, unspecified; Y92.9 Unspecified place or not applicable; Y99.9 Unspecified external cause status | CPT/HCPCS: 99202 ==